=== PATIENT | male | born 1945 | race Caucasian/White ===

== ENCOUNTER 2016-06-03 08:59 | Outpatient (CLI) | payer MEDICARE ==
[2016-06-03 15:51] LABS: TOTAL PROTEIN 6.7 g/dL (6.0-8.5)
== END 2016-06-03 09:00 ==
LOC: LAB 08:59
PROVIDERS: ATTEND Family Medicine
DX: J45.30 Mild persistent asthma, uncomplicated (principal); Z13.220 Encounter for screening for lipoid disorders
CPT/HCPCS: 36415; 80053; 80061